=== PATIENT | male | born 1980 | race Caucasian/White ===

== ENCOUNTER → 2017-02-08 | Outpatient (CLI) | payer BC, OTHER ==
--- NOTE | 2017-02-08 11:12 | REP ---
Popliteal fossa ultrasound: Right lower extremity. History: Posterior right knee pain radiating to the distal calf. Question Flores's cyst. Findings: Sonography of the soft tissues of the popliteal fossa in the right lower extremity show no evidence of Flores's or popliteal artery aneurysm. No other mass lesion is seen. Impression: Negative right popliteal fossa sonography. Signed by Bubba Zavala MD 02/08/2017 12:49 P
== END ==
LOC: M RAD 10:10
PROVIDERS: ATTEND Psychiatry & Neurology Neurology
DX: M71.21 Synovial cyst of popliteal space [Baker], right knee (principal); R20.2 Paresthesia of skin; M79.604 Pain in right leg

== ENCOUNTER → 2018-06-10 | Outpatient (REF) | payer OTHER ==
[2018-06-10 12:34] LABS: ESTIMATED AVERAGE GLUCOSE 108 MG/DL (60-110); HEMOGLOBIN A1c 5.4 %
[2018-06-10 13:11] LABS: ANION GAP 8 MEQ/L (8-16); BLOOD UREA NITROGEN 24 MG/DL (7-18); CARBON DIOXIDE LEVEL 29 MEQ/L (21-32); CHLORIDE LEVEL 106 MEQ/L (98-107); CHOLESTEROL LEVEL 156 MG/DL (<200); CHOLESTEROL RISK RATIO 2.476 (<5); CREATININE FOR GFR 0.81 MG/DL (0.70-1.30); GLOMERULAR FILTRATION RATE > 60.0 (>60); GLUCOSE, FASTING 78 MG/DL (70-100); HDL CHOLESTEROL 63 MG/DL (>40); LDL CHOLESTEROL 83.4 MG/DL (<100); NON-HDL-C 93 MG/DL; POTASSIUM SERUM 4.8 MEQ/L (3.5-5.1); SODIUM LEVEL 143 MEQ/L (136-145); TRIGLYCERIDES LEVEL 48 MG/DL (<150)
== END ==
LOC: M SFHCPLAZ 09:51
DX: Z13.1 Encounter for screening for diabetes mellitus (principal); Z13.220 Encounter for screening for lipoid disorders; R35.1 Nocturia
CPT/HCPCS: 83036

== ENCOUNTER 2018-12-22 08:09 | Day surgery (SDC) | payer BC, OTHER ==
[~2018-12-22] VITALS: Ht 182.9 cm; Wt 89.4 kg
[~2018-12-22 08:09] MED LIST: LIDOCAINE 1% MDV 20ML VIAL SQ PRN; LIDOCAINE W/EPINEPHRINE 1% 20ML VIAL As Ordered ONE; METHYLENE BLUE 0.5% (5MG/ML) 10 ML AMP (PROVAYBLUE)(Q9968 PER 1MG) As Ordered ONE; OXYMETAZOLINE NASAL SPRAY (AFRIN) As Ordered ONE
[2018-12-22] MEDS ORDERED: PROPOFOL 200 MG/20 ML VIAL As Ordered ONE (08:41)
[2018-12-22] MEDS ORDERED: LIDOCAINE 2% INJ 100 MG/5 ML SDV (FOR ANES.) As Ordered ONE (08:42)
[2018-12-22] MEDS ORDERED: dexameTHASONE 4 MG/ML 1ML VIAL (J1100) As Ordered ONE (08:42)
[2018-12-22] MEDS ORDERED: ONDANSETRON 4MG/2ML VIAL (J2405) As Ordered ONE (08:42)
[2018-12-22] MEDS ORDERED: fentaNYL 250 MCG/5 ML INJECTION (J3010) As Ordered ONE (08:44)
[2018-12-22] MEDS ORDERED: MIDAZOLAM INJ 2 MG/2 ML VIAL (J2250) As Ordered ONE (08:44)
[2018-12-22] MEDS ORDERED: SCOPOLAMINE 1MG TRANSDERMAL PATCH As Ordered ONE (09:31)
[2018-12-22] MEDS ORDERED: LR 1,000 ML IV ONE (09:45)
[2018-12-22] MEDS ORDERED: SCOPOLAMINE 1MG TRANSDERMAL PATCH TOP ONE (09:45)
[2018-12-22] MEDS ORDERED: ROCURONIUM BROMIDE 50 MG/5 ML VIAL As Ordered ONE (10:03)
[2018-12-22] MEDS ORDERED: GLYCOPYRROLATE INJ 0.2 MG/ML 2 ML VIAL As Ordered ONE (10:21)
[2018-12-22] MEDS ORDERED: METOCLOPRAMIDE INJ 10MG/2ML VIAL (J2765) IV PRN (12:30)
[2018-12-22] MEDS ORDERED: fentaNYL 100 MCG/2 ML INJECTION (J3010) IV PRN (12:30)
[2018-12-22] MEDS ORDERED: ONDANSETRON 4MG/2ML VIAL (J2405) IV PRN (12:30)
[2018-12-22] MEDS ORDERED: HYDROMORPHONE HCL 0.5 MG/ 0.5 ML SYRINGE (J1170 PER 1) IV PRN (12:30)
[2018-12-22] MEDS ORDERED: LR 1,000 ML IV SCH (12:30)
[2018-12-22] MEDS ORDERED: PERCOCET 5MG/325MG TAB PO PRN ×3 (12:30)
[2018-12-22 14:25] VITALS: BP 123/76
== END 2018-12-22 14:32 | disposition home or self-care (01) ==
LOC: M SDC 08:09
PROVIDERS: ATTEND Specialist
DX: J34.2 Deviated nasal septum (principal); J31.0 Chronic rhinitis
CPT/HCPCS: 30140; 30520; 88305; J1100; J2250; J2405; J3010; Q9968

== ENCOUNTER → 2019-09-16 | Outpatient (REF) | payer OTHER ==
[2019-09-19 00:07] LABS: PSA TOTAL 0.6 ng/mL (0.0-4.0)
== END ==
LOC: M SFHCPLAZ 08:50
PROVIDERS: ATTEND Family Medicine
DX: N41.1 Chronic prostatitis (principal)

== ENCOUNTER → 2019-10-22 | Outpatient (CLI) | payer BC, OTHER ==
--- NOTE | 2019-10-27 00:17 | SLEEPCENT ---
DATE OF PROCEDURE: 10/22/2019 ORDERED BY: DOMINGO Vasques Nocturnal polysomnography was performed for evaluation of sleep physiology in this patient with a history of excessive somnolence and nonrestorative sleep. 7 hours and 52 minutes of data were reviewed. There were 445 minutes of sleep identified. Sleep latency was short at 3 minutes. REM latency was normal at 84.5 minutes. The sleep architecture was good with four REM cycles. Overall sleep efficiency was 95.9%. The patient's electrocardiogram showed a sinus rhythm with small complexes. Average heart rate 44 beats per minute. Rate ranged 30-60. EEG showed reasonably normal waveforms for awake and sleep. There were only 9 respiratory events identified of 10 seconds in duration or greater for an apnea-hypopnea index of 1.2, snoring was noted and arousals from respiratory events occurred three times per hour. There were no oxygen desaturations and minimal limb activity was noted in the EMG leads. IMPRESSION: Normal nocturnal polysomnography with snoring.
== END ==
LOC: M SLEEP 19:47
PROVIDERS: ATTEND Nurse Practitioner Family
DX: R40.0 Somnolence (principal)

== ENCOUNTER → 2019-11-23 | Outpatient (REF) | payer OTHER | LOC: M SMT 13:45 | PROVIDERS: ATTEND Urology | DX: R39.198 Other difficulties with micturition (principal) ==